=== PATIENT | female | born 2005 | race Two or more races ===

== ENCOUNTER 2025-04-11 12:09 | Emergency (ER) | payer MEDICAID, OTHER ==
[~2025-04-11] VITALS: Ht 162.6 cm; Wt 53.0 kg
[2025-04-11 12:26] VITALS: TEMP 97.9
[2025-04-11 14:06] LABS: Basophils # (auto) 0 10 ^3/uL (0-0.2); Basophils % (auto) 0.3 % (0.0-2.0); Eosinophils # (auto) 0.2 10 ^3/uL (0-0.8); Eosinophils % (auto) 1.7 % (0.0-7.0); Hematocrit 44.4 % (36.0-46.0); Hemoglobin 14.9 g/dL (12.2-16.2); Lymphocytes # (auto) 2.8 10 ^3/uL (0.4-5.4); Lymphocytes % (auto) 22.5 % (10.0-50.0); Mean Corpuscular Hemoglobin 29.2 pg (28.0-32.0); Mean Corpuscular Hgb Conc. 33.5 g/dL (32.0-36.0); Mean Corpuscular Volume 87.1 fL (80.0-100.0); Monocytes # (auto) 0.7 10 ^3/uL (0-1.3); Monocytes % (auto) 5.3 % (0.0-12.0); Neutrophils # (auto) 8.7 10 ^3/uL (1.6-8.6); Neutrophils % (auto) 70.2 % (37.0-80.0); Nucleated Red Blood Cells % 0.1 %; Platelet Count (auto) 231 10^3/uL (140-450); Red Blood Cells 5.09 10^6/uL (4.0-5.20); Red Cell Distribution Width 13.3 % (11.8-14.3); White Blood Cell 12.4 10^3/uL (4.4-10.8)
[2025-04-11 14:17] LABS: Chloride 104 mmol/L (98-107); Potassium 3.8 mmol/L (3.5-5.1); Sodium 140 mmol/L (136-145)
[2025-04-11 14:18] LABS: Anion Gap 10 (5-15); Carbon Dioxide 26 mmol/L (20-31)
[2025-04-11 14:19] LABS: Calcium 10.2 mg/dL (8.7-10.4)
[2025-04-11 14:23] LABS: BUN/Creatinine Ratio 9.7 (10.0-20.0); Glucose 91 mg/dL (74-106)
[2025-04-11 14:24] LABS: Blood Urea Nitrogen 9 mg/dL (9-23)
[2025-04-11 14:49] LABS: Urine Bacteria FEW /hpf (None Seen); Urine Blood 3+ /uL (Negative); Urine Clarity Turbid (Clear); Urine Color Light-Yellow (Yellow); Urine Mucus FEW (None Seen); Urine Protein, UAD Negative (Negative); Urine Specific Gravity 1.017 (1.001-1.035); Urine Squamous Epithelial Cell FEW /hpf (<5); Urine Urobilinogen Normal (Negative); Urine WBC 6 /HPF (0-5)
[2025-04-11] MEDS: diphenhdrAMINE HCL 50 MG/1 ML VL IV ONE (16:19)
[2025-04-11] MEDS: SODIUM CHLORIDE 0.9% 1,000 ML IV ONE (16:19)
[2025-04-11] MEDS: PROCHLORPERAZINE EDISYLATE 5 MG/ML 2ML VIAL IV ONE (16:20)
[2025-04-11] MEDS: KETOROLAC TROMETH 30 MG/ML 1ML VIAL IV ONE (16:20)
--- NOTE | 2025-04-11 17:12 | ED.PDOC ---
HPI (NEURO) HPI Comments 19-year-old female with a history of migraines presents with a chief complaint of an atraumatic head and located to the posterior occipital region. The patient reports she has had these symptoms in the past and they feel like her usual migraines Has tried [id number] medications with no improvement. Associated with photophobia phonophobia Denies fever, chills, night sweats Denies persistent nausea Denies vomiting Denies head trauma around the time headache started Denies family history of brain issues persistent headaches Denies taking any blood thinner medication Denies vision/hearing changes Denies focal loss of strength/sensation or changes in speech Chief Complaint: Headache Time Seen by MD: 13:12 Primary Care Provider: NONE Reviewed Notes: Nurses Notes, Medications, Allergies Information Source: Patient Mode of Arrival: Ambulatory Past Medical History Immunizations: Current Medical History: Denies Operations: Denies Family History Family History: Reviewed,noncontributory to illness Social History Smoking: Non-Smoker Alcohol: Denies ETOH Use Drugs: Denies Drug Use All Other Systems: Reviewed and Negative (PER HPI) Physical Exam General Appearance: No Apparent Distress, Normal HEENT: Head (Normocephalic atraumatic), Normal ENT Inspection, Pharynx Normal, TMs Normal Neck: Full Range of Motion, Non-Tender, Normal, Normal Inspection Respiratory: Chest Non-Tender, Lungs Clear, No Accessory Muscle Use, No Respiratory Distress, Normal Breath Sounds Cardiovascular: No Murmur, No Gallop, Regular Rate/Rhythm Breast Exam: Deferred Gastrointestinal: No Organomegaly, Non Tender, No Pulsatile Mass, Normal Bowel Sounds, Soft Genitalia: Deferred Pelvic: Deferred Rectal: Deferred Extremities: No calf tenderness, Normal capillary refill, Normal inspection, Normal range of motion, Non-tender, No pedal edema Musculoskeletal : Apperance: Normal Neurologic: Alert, counter top maker II-XII nml as Tested, No Motor Deficits, Normal Affect, Normal Mood, No Sensory Deficits Cerebellar Function: Normal Reflexes: Normal Skin: Dry, Normal Color, Warm Lymphatic: No Adenopathy Was a procedure done? Was a procedure done?: No Differential Diagnosis (SZ) Seizure: Other Headache: Migraine X-Ray, Labs, Meds, VS Vital Signs Date Time Temp Pulse Resp B/P (MAP) Pulse Ox O2 Delivery O2 Flow Rate FiO2 04/11/25 12:26 97.9 97 16 132/95 (107) 97 97.9 Lab Test 04/11/25 14:00 04/11/25 13:42 Range/Units Urine Color Light-yellow Yellow Urine Clarity Turbid H Clear Urine pH 6.0 5.0-9.0 Urine Specific [place] 1.017 1.001-1.035 Urine Protein Negative Negative Urine Ketones 1+ H Negative Urine Blood 3+ H Negative /uL Urine Nitrite Negative Negative Urine Bilirubin Negative Negative Urine Urobilinogen Normal Negative mg/dL Urine Leukocyte Esterase Trace Negative /uL Urine RBC 627 0 - 4 /hpf Urine Microscopic WBC 6 H 0-5 /HPF Urine Squamous Epithelial Cells Few <5 /hpf Urine Bacteria Few H None Seen /hpf Urine Mucus Few None Seen Urine Glucose Normal Normal mg/dL Urine Test Negative Negative White Blood Count 12.4 H 4.4-10.8 10^3/uL Red Blood Count 5.09 4.0-5.20 10^6/uL Hemoglobin 14.9 12.2-16.2 g/dL Hematocrit 44.4 36.0-46.0 % Mean Corpuscular Volume 87.1 80.0-100.0 fL Mean Corpuscular Hemoglobin 29.2 28.0-32.0 pg Mean Corpuscular Hemoglobin Concent 33.5 32.0-36.0 g/dL Red Cell Distribution Width 13.3 11.8-14.3 % Platelet Count 231 140-450 10^3/uL Mean Platelet Volume 9.1 6.9-10.8 fL Neutrophils (%) (Auto) 70.2 37.0-80.0 % Lymphocytes (%) (Auto) 22.5 10.0-50.0 % Monocytes (%) (Auto) 5.3 0.0-12.0 % Eosinophils (%) (Auto) 1.7 0.0-7.0 % Basophils (%) (Auto) 0.3 0.0-2.0 % Neutrophils # (Auto) 8.7 H 1.6-8.6 10 ^3/uL Lymphocytes # (Auto) 2.8 0.4-5.4 10 ^3/uL Monocytes # (Auto) 0.7 0-1.3 10 ^3/uL Eosinophils # (Auto) 0.2 0-0.8 10 ^3/uL Basophils # (Auto) 0 0-0.2 10 ^3/uL Nucleated Red Blood Cells 0.1 % Sodium Level 140 136-145 mmol/L Potassium Level 3.8 3.5-5.1 mmol/L Chloride Level 104 98-107 mmol/L Carbon Dioxide Level 26 20-31 mmol/L Anion Gap 10 5-15 Blood Urea Nitrogen 9 9-23 mg/dL Creatinine 0.93 0.550-1.02 mg/dL Glomerular Filtration Rate Calc 90 >90 mL/min BUN/Creatinine Ratio 9.7 L 10.0-20.0 Serum Glucose 91 74-106 mg/dL Calcium Level 10.2 8.7-10.4 mg/dL Current Medications Medications (Trade) Dose Ordered Sig/Arabella Route Start Time Stop Time Status Last Admin Sodium Chloride 1,000 ml @ 1,000 mls/hr Q1H ONCE IV 04/11/25 15:45 04/11/25 16:44 DC 04/11/25 16:19 Ketorolac Tromethamine (Toradol Injection) 30 mg ONCE ONCE IV 04/11/25 15:45 04/11/25 15:46 DC 04/11/25 16:20 Prochlorperazine Edisylate (Compazine Inj) 10 mg ONCE ONCE IV 04/11/25 15:45 04/11/25 15:46 DC 04/11/25 16:20 Diphenhydramine HCl (Benadryl Injection) 12.5 mg ONCE ONCE IV 04/11/25 15:45 04/11/25 15:46 DC 04/11/25 16:19 X-Ray, Labs, Meds, VS Comment The patients history and physical exam are consistent with a benign headache. Considered subarachnoid hemorrhage however this is less likely given that the patient has had a similar and worst headaches in the past, the lack of trauma, and the slow onset with intermittent symptomatology. Low suspicion of meningitis given the afebrile, well-appearing, and without meningismus on exam. Additionally no history of recent trauma prior to the patient experiencing this headache. Finally, the patient does not report any positional exacerbation with the headaches and has not had a recent spinal procedures therefore my suspicion for central causes and post procedural etiologies of headaches are less likely. Low concern for meningitis as there are no signs of fever, altered mentation nor neck stiffness. Brudzinski/Kernig negative. Low concern for subarachnoid hemorrhage there are no signs of a thunderclap headache Low concern for subdural hematoma and intracranial hemorrhage as there is no history of trauma, progressively worsening headache and neuroexam is unremarkable. Low suspicion for brain tumor as neuroexam is unremarkable. No nausea vomiting. No morning or nocturnal headache. No suspicion for temporal arteritis as there are no signs of fever, muscle weakness, jaw claudication, no transient visual loss. Given benign exam and history, CT imaging was discussed with the patient and was deferred during this visit. While in the ED, the patient was treated with a migraine cocktail Patient was overall well-appearing and hemodynamically stable in the ED. They were able to ambulate and continued to have a nonfocal exam in the emergency department. Discussed continued symptomatic treatment at home. Recommended follow up with PCP. Return precautions to the ED discussed Counseled to start headache diary Recommended headache elimination diet Avoid prolonged periods of fasting Drink plenty of water Exercise daily, limit screen time Aim to sleep 8 to 9 hours per night, practice good hygiene ED precautions given Additional MDM Review of External, Non-ED records: External records reviewed. Discussion with independent historian (EMS, family) history obtained from the patient at bedside Chronic conditions affecting care: none Social determinants of health affecting care: none Consideration of admission (observation or admission): I considered escalation of care to admission for this patient, however given the reassuring workup, the patient is safe for outpatient management. Time of 1ST Reevaluation: 17:10 Reevaluation 1ST: Improved Patient Education/Counseling: Diagnosis, Treatment Family Education/Counseling: Diagnosis, Treatment Departure 1 Departure Time of Disposition: 17:12 Impression: Primary Impression: Migraine Qualified Codes: G43.909 - Migraine, unspecified, not intractable, without status migrainosus Disposition: 01 HOME / SELF CARE / HOMELESS Condition: Fair Discharged With: Relative Critical Care Note Critical Care Time?: No Stability Stability form required: CHRIS Gonzales NP April 11, 2025 17:12
[2025-04-11 17:20] VITALS: BP 132/95; PULSE 97; RESP 16; O2SAT 97
[2025-04-11] MEDS: DexAMETHasone SOD PHOS 10MG/1ML VIAL INJ IV ONE (17:21)
== END 2025-04-11 17:41 | disposition home or self-care (01) ==
LOC: ER 12:13
DX: G43.909 Migraine, unspecified, not intractable, without status migrainosus (principal)
CPT/HCPCS: 36415; 80048; 81001; 81025; 85025; 96361; 96374; 96375; 99284; J0780; J1100; J1200; J1885; J7030

== ENCOUNTER 2025-05-20 19:57 | Emergency (ER) | payer MEDICAID ==
[~2025-05-20] VITALS: Ht 162.6 cm; Wt 53.8 kg
--- NOTE | 2025-05-20 20:38 | ED.PDOC ---
General HPI Comments 19 y/o F presents with 2x day history of R mid-abdominal and right sided low back pain, with associated painful urination and urinary frequency/urgency. She also reports a 4x day history of fever. Patient has a significant history of frequent UTI's and migraines. Pt rates pain 5/10 in severity and states it feels similar to a UTI she had a year ago. Denies any nausea/vomiting/diarrhea, weakness, lightheadedness, cough, congestion, or further associated symptoms. Chief Complaint: Urinary Time Seen by MD: 20:15 Primary Care Provider: NONE Reviewed notes: Nurses Notes, Medications, Allergies Allergies: Coded Allergies: NO KNOWN ALLERGIES (Unverified , 04/11/25) Information Source: Patient Mode of Arrival: Ambulatory Severity: Moderate Inability to void: None Past Medical History Past Medical History (Other): UTI's Migraines Surgical History: Denies all surgeries Family History Family History: Reviewed,noncontributory to illness Social History Smoker: Non-Smoker Alcohol: Denies ETOH Use Drugs: Denies Drug Use All Other Systems: Reviewed and Negative (Comprehensive review of systems are negative unless otherwise stated in HPI) Physical Exam General Appearance: No Apparent Distress HEENT: Other (Pupils EN face symmetric. Moist mucous membranes.) Neck: Full Range of Motion, Normal Inspection Respiratory: Lungs Clear, No Accessory Muscle Use, No Respiratory Distress, Normal Breath Sounds Cardiovascular: No Edema, No JVD, Regular Rate/Rhythm Breast Exam: Deferred Gastrointestinal: Soft, Tenderness (R flank) Genitalia: Deferred Pelvic: Deferred Rectal: Deferred Extremities: Normal inspection, Normal range of motion, Non-tender, No pedal edema Neurologic: Alert (Oriented x4), Normal Affect, Normal Mood, Other (Ambulatory) Cerebellar Function: NOT DONE Reflexes: NOT DONE Skin: Dry, Normal Color, Warm Lymphatic: NOT DONE Was a procedure done? Was a procedure done?: No Differential Diagnosis Kidney stone (Female): Cholelithiasis, Musculoskeletal pain, Pyelonephritis, Strain, Urinary obstruction, Urolithiasis Urinary Problem (Female): Pyelonephritis, Urinary retention, Urolithiasis, UTI X-Ray, Labs, Meds, VS Vital Signs Date Time Temp Pulse Resp B/P (MAP) Pulse Ox O2 Delivery O2 Flow Rate FiO2 05/20/25 21:02 98.8 112 19 95/63 (74) 96 98.8 6/29/25 21:02 112 19 96 Room Air* 0 21 05/20/25 20:09 99.7 120 18 110/69 (83) 98 99.7 Lab Test 05/20/25 20:43 05/20/25 20:42 Range/Units Urine Color Light-orange Yellow Urine Clarity Turbid H Clear Urine pH 6.0 5.0-9.0 Urine Specific [place] 1.025 1.001-1.035 Urine Protein 2+ H Negative Urine Ketones 3+ H Negative Urine Blood 3+ H Negative /uL Urine Nitrite Negative Negative Urine Bilirubin Negative Negative Urine Urobilinogen Normal Negative mg/dL Urine Leukocyte Esterase 2+ Negative /uL Urine RBC 133 0 - 4 /hpf Urine Microscopic WBC 130 H 0-5 /HPF Urine Squamous Epithelial Cells Few <5 /hpf Urine Bacteria None seen None Seen /hpf Urine Mucus Few None Seen Urine Glucose Normal Normal mg/dL Urine Test Negative Negative White Blood Count 16.3 H 4.4-10.8 10^3/uL Red Blood Count 4.48 4.0-5.20 10^6/uL Hemoglobin 13.2 12.2-16.2 g/dL Hematocrit 38.5 36.0-46.0 % Mean Corpuscular Volume 85.8 80.0-100.0 fL Mean Corpuscular Hemoglobin 29.3 28.0-32.0 pg Mean Corpuscular Hemoglobin Concent 34.2 32.0-36.0 g/dL Red Cell Distribution Width 12.5 11.8-14.3 % Platelet Count 148 140-450 10^3/uL Mean Platelet Volume 8.9 6.9-10.8 fL Neutrophils (%) (Auto) 86.6 H 37.0-80.0 % Lymphocytes (%) (Auto) 4.6 L 10.0-50.0 % Monocytes (%) (Auto) 8.6 0.0-12.0 % Eosinophils (%) (Auto) 0.0 0.0-7.0 % Basophils (%) (Auto) 0.2 0.0-2.0 % Neutrophils # (Auto) 14.1 H 1.6-8.6 10 ^3/uL Lymphocytes # (Auto) 0.7 0.4-5.4 10 ^3/uL Monocytes # (Auto) 1.4 H 0-1.3 10 ^3/uL Eosinophils # (Auto) 0 0-0.8 10 ^3/uL Basophils # (Auto) 0 0-0.2 10 ^3/uL Nucleated Red Blood Cells 0.0 % Sodium Level 135 L 136-145 mmol/L Potassium Level 3.3 L 3.5-5.1 mmol/L Chloride Level 103 98-107 mmol/L Carbon Dioxide Level 19 L 20-31 mmol/L Anion Gap 13 5-15 Blood Urea Nitrogen 9 9-23 mg/dL Creatinine 0.85 0.550-1.02 mg/dL Glomerular Filtration Rate Calc 100 >90 mL/min BUN/Creatinine Ratio 10.6 10.0-20.0 Serum Glucose 126 H 74-106 mg/dL Calcium Level 9.4 8.7-10.4 mg/dL Current Medications Medications (Trade) Dose Ordered Sig/Arabella Route Start Time Stop Time Status Last Admin Sodium Chloride 2,000 ml @ 1,000 mls/hr Q2H ONCE IV 05/20/25 20:30 05/20/25 22:29 05/20/25 20:50 Ceftriaxone Sodium/Dextrose 50 ml @ 50 mls/hr ONCE ONCE IV 05/20/25 20:30 05/20/25 21:29 05/20/25 20:50 Ketorolac Tromethamine (Toradol Injection) 30 mg ONCE ONCE IV 05/20/25 20:30 05/20/25 20:31 DC 05/20/25 20:50 X-Ray, Labs, Meds, VS Comment 19-year-old female with a history of UTIs and migraines presenting complaining of right-sided abdominal pain, urinary frequency, dysuria and urgency Vitals remarkable for temperature 99.7, heart rate 120 Exam remarkable for right flank tenderness to palpation Rhythm strip independently interpreted by me: Sinus tach, rate 120, no ectopy. CBC remarkable for WBC 16.3, metabolic panel remarkable for sodium 135, potassium 3.3, CO2 19, UA abnormal consistent with UTI Patient treated with the following in the ED: 2 L 0.9 normal saline IV bolus, Rocephin 2 g IV, Toradol 30 mg IV, effervescent potassium 50 mEq p.o. On re-evaluation, patient states pain has improved. Vitals were stable and patient is no longer tachycardic. Hospitalization was considered, however patient had rapid improvement of symptoms with treatment in the ED, and I no longer feel hospitalization is necessary. Patient now appears stable for discharge with close outpatient follow-up with her primary physician. Rx Tylenol, ibuprofen, Pyridium, Keflex Time of 1ST Reevaluation: 20:45 Reevaluation 1ST: Unchanged Patient Education/Counseling: Diagnosis, Treatment, Need For Follow Up Family Education/Counseling: No Family Present SEPSIS Sepsis Screen Recent Procedure: No On Antibiotic Therapy: No Respiratory Rate >20: No Heart Rate >90: Yes Temp<36 C (96.8 F) or >38.3 C: No SBP <90 or MAP <65 mmHG: No New Acute Mental Status Change: No Is the patient on CPAP, BIPAP,: No IV fluid challenge completed?: Yes SEPSIS EXCLUSION NOTE: Sepsis Exclusion Note: Patient presents with SIRS criteria, but the SIRS response is attributed to [pain, dehydration ]. Sepsis bundle is not initiated at this time, due to this reason. Further management will focus on the treatment of the above condition (s). Physician Orders Sodium Chloride 0.9% (05/20/25 20:30) Ceftriaxone 2gm/50ml D5w (Rocephin 2gm/5 (05/20/25 20:30) Vital Signs Date Time Temp Pulse Resp B/P (MAP) Pulse Ox O2 Delivery O2 Flow Rate FiO2 05/20/25 21:02 98.8 112 19 95/63 (74) 96 98.8 05/20/25 21:02 112 19 96 Room Air* 0 21 05/20/25 20:09 99.7 120 18 110/69 (83) 98 99.7 Laboratory Tests Test 05/20/25 20:42 White Blood Count 16.3 10^3/uL (4.4-10.8) H Medications Medications Dose Ordered Sig/Arabella Route Start Time Stop Time Status Last Admin Dose Admin Ceftriaxone Sodium/Dextrose 50 ml @ 50 mls/hr ONCE ONCE IV 05/20/25 20:30 05/20/25 21:29 05/20/25 20:50 Ketorolac Tromethamine 30 mg ONCE ONCE IV 05/20/25 20:30 05/20/25 20:31 DC 05/20/25 20:50 Sodium Chloride 2,000 ml @ 1,000 mls/hr Q2H ONCE IV 05/20/25 20:30 05/20/25 22:29 05/20/25 20:50 Departure 1 Departure Time of Disposition: 21:28 Impression: Primary Impression: UTI (urinary tract infection) Qualified Codes: N39.0 - Urinary tract infection, site not specified Disposition: HOME / SELF CARE / HOMELESS Condition: Stable Additional Instructions: Blood tests showed an elevated white blood cell count which is consistent with an infection. Your sodium and potassium were slightly low. We have corrected this in the ER. Your urine test showed an infection. I have prescribed pain medication and antibiotics. Follow-up with your primary doctor in 1-2 days. Return to ER for persistent or worsening symptoms. e-Prescriptions Phenazopyridine HCl (Phenazopyridine Hydrochlo) 200 Mg Tab 200 MG PO TID PRN, #9 TAB Prn painful urination Prov: ILSA HERMAN MD 05/20/25 Ibuprofen Micronized (Ibuprofen) 600 Mg Tab 600 MG PO Q6HP PRN, #30 TAB Prn pain or fever. Take with food. Prov: ILSA HERMAN MD 05/20/25 Acetaminophen (Tylenol Extra Strength) 500 Mg Tab 1000 MG PO Q6HP PRN, #30 TAB Prn pain or fever. Take with food. Prov: ILSA HERMAN MD 05/20/25 Cephalexin Monohydrate (Cephalexin) 500 Mg Cap 1 CAP PO QID for 10 Days, #40 CAP Prov: ILSA HERMAN MD 05/20/25 Discharged With: Relative Critical Care Note Critical Care Time?: No Stability Stability form required: No Heart Score Heart Score: Heart Score Response (Comments) Value History N/A 0 EKG N/A 0 Age N/A 0 Risk Factors N/A 0 Troponin N/A 0 Total 0 I personally scribed for ILSA HERMAN MD ([email or web address]) on 05/20/25 at 20:38. Electronically submitted by Donovan Rodriguez ([email or web address]). I personally scribed for ILSA HERMAN MD ([email or web address]) on 05/20/25 at 20:58. Electronically submitted by Donovan Rodriguez [email or web address]). ILSA HERMAN MD May 20, 2025 20:38
[2025-05-20 20:44] LABS: Urine Bacteria None Seen /hpf (None Seen)
[2025-05-20] MEDS: cefTRIAXone 2GM/50ML D5W 50 ML IV ONE (20:50)
[2025-05-20] MEDS: KETOROLAC TROMETH 30 MG/ML 1ML VIAL IV ONE (20:50)
[2025-05-20] MEDS: SODIUM CHLORIDE 0.9% 2,000 ML IV ONE (20:50)
[2025-05-20 20:54] LABS: Basophils # (auto) 0 10 ^3/uL (0-0.2); Basophils % (auto) 0.2 % (0.0-2.0); Eosinophils # (auto) 0 10 ^3/uL (0-0.8); Hematocrit 38.5 % (36.0-46.0); Hemoglobin 13.2 g/dL (12.2-16.2); Lymphocytes # (auto) 0.7 10 ^3/uL (0.4-5.4); Lymphocytes % (auto) 4.6 % (10.0-50.0); Mean Corpuscular Hemoglobin 29.3 pg (28.0-32.0); Mean Corpuscular Hgb Conc. 34.2 g/dL (32.0-36.0); Mean Corpuscular Volume 85.8 fL (80.0-100.0); Monocytes # (auto) 1.4 10 ^3/uL (0-1.3); Monocytes % (auto) 8.6 % (0.0-12.0); Neutrophils # (auto) 14.1 10 ^3/uL (1.6-8.6); Neutrophils % (auto) 86.6 % (37.0-80.0); Platelet Count (auto) 148 10^3/uL (140-450); Red Blood Cells 4.48 10^6/uL (4.0-5.20); Red Cell Distribution Width 12.5 % (11.8-14.3); White Blood Cell 16.3 10^3/uL (4.4-10.8)
[2025-05-20 21:00] LABS: Urine Blood 3+ /uL (Negative); Urine Clarity Turbid (Clear); Urine Color Light-Orange (Yellow); Urine Mucus FEW (None Seen); Urine Protein, UAD 2+ (Negative); Urine Specific Gravity 1.025 (1.001-1.035); Urine Squamous Epithelial Cell FEW /hpf (<5); Urine Urobilinogen Normal (Negative); Urine WBC 130 /HPF (0-5)
[2025-05-20 21:02] VITALS: PULSE 112; RESP 19; O2SAT 96
[2025-05-20 21:03] LABS: Chloride 103 mmol/L (98-107)
[2025-05-20 21:04] LABS: Anion Gap 13 (5-15); Calcium 9.4 mg/dL (8.7-10.4)
[2025-05-20 21:09] LABS: BUN/Creatinine Ratio 10.6 (10.0-20.0)
[2025-05-20 21:12] LABS: Blood Urea Nitrogen 9 mg/dL (9-23); Carbon Dioxide 19 mmol/L (20-31); Glucose 126 mg/dL (74-106); Potassium 3.3 mmol/L (3.5-5.1); Sodium 135 mmol/L (136-145)
[2025-05-20] MEDS ORDERED: IBUP1TAB5 PO (21:31)
[2025-05-20] MEDS ORDERED: PHEN-922 PO (21:31)
[2025-05-20] MEDS ORDERED: ACET-1304 PO (21:31)
[2025-05-20] MEDS ORDERED: CEPH500C PO (21:31)
[2025-05-20] MEDS: POTASSIUM EFFERVESENT TAB 25 MEQ PO ONE (21:42)
[2025-05-20 22:04] VITALS: BP 112/59; PULSE 97; RESP 17; TEMP 97.9; O2SAT 100
== END 2025-05-20 22:07 | disposition home or self-care (01) ==
LOC: ER 19:57
DX: N39.0 Urinary tract infection, site not specified (principal)
CPT/HCPCS: 36415; 80048; 81001; 81025; 85025; 96365; 96375; 99284; J0696; J1885; J7030